=== PATIENT | male | born 1945 | race African-American/Black ===

== ENCOUNTER → 2017-01-31 | Outpatient (CLI) | payer OTHER ==
--- NOTE | 2017-01-31 15:08 | RAD ---
4 views lumbar spine without comparison for spondylolisthesis. Findings: Supine lateral view is somewhat oblique, however there is grade 1 anterolisthesis of L4 and L5, with severe degenerative facet arthrosis at L4-5 and L5-S1. There is narrowing at L4-5 as well. No other alignment abnormalities are identified. Extensive atherosclerotic calcifications are seen. There is vacuum phenomenon present at L5-S1. With both upright flexion and extension, the L4-5 anterolisthesis appears stable, however flexion dose reveal a less prominent grade 1 L3-4 anterolisthesis of 2 to 3 mm. There is a slight levocurvature of the spine. There is a 13 mm smooth ovoid calcific density over the left mid abdomen, which may represent renal calculus or element of the fecal stream. Impression: 1. Grade 1 L4-5 anterolisthesis stable in both flexion and extension. 2. Milder grade 1 anterolisthesis at L3-4, only apparent with flexion. 3. 13 mm possible left renal calculus. Correlate clinically. Finding could be confirmed with noncontrast CT scan or renal ultrasound if clinical warranted. 4. Other chronic changes as described.
== END | disposition home or self-care (01) ==
LOC: RAD 12:34
PROVIDERS: ATTEND Neurological Surgery
DX: M43.16 Spondylolisthesis, lumbar region (principal)
CPT/HCPCS: 72110

== ENCOUNTER → 2020-06-19 | Outpatient (CLI) | payer MEDICARE ==
[~2020-06-19] MED LIST: APIX5TAB PO; ATOR20TA58 PO; CARV25TA PO; CYCL5TAB PO; DOCU100C28 PO; FLUT9.9S NS; FURO40TA4 PO; GABA600T7 PO; HYDR-2763 PO; HYDR-2765 PO; IPRA15SP NS; LOSA100T14 PO; LOSA1TAB22 PO; MELO15TA23 PO; METO25TA4 PO; OXYC1TAB15 PO; PANT40TA77 PO; POTA20TA4 PO; TAMS0.4C97 PO; TRIA15OI TP; UMEC62.5 IH; VENTOLIN HFA18 GM INH; VITAMIN D3; ZOLP10TA PO
--- NOTE | 2020-06-19 13:56 | KCIC ---
EXAMINATION: Magnetic resonance imaging (MRI) of the lumbar spine without contrast 06/19/2020 12:35 PM HISTORY: Low back pain. TECHNIQUE: Multiplanar multi-weighted MRI of the lumbar spine was performed without intravenous contr ast using the standard lumbar spine protocol. Contrast information: None administered. COMPARISON: None available. FINDINGS: There is 2 mm anterolisthesis of L3 on L4 and 6 mm anterolisthesis of L4 on L5. There is mild disc he ight loss at L2-L3, L3-L4 and moderate disc height loss at L4-L5 and L5-S1 with vacuum disc phenomena at L5-S1. Disc desiccation is identified at all levels of lumbar spine. Conus medullaris terminates at L1. Distal spinal cord signal intensity is normal in all sequences. Vertebral body heights are kevin ntained. No acute fractures identified. No significant marrow edema is identified. Abdominal aorta is normal in caliber. No suspicious retroperitoneal abnormality is identified. 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 Bilateral renal cor tical cysts are identified measuring up to 2.4 cm the right kidney. L1-L2: Disc is normal in configuration. No significant facet arthropathy. No neuroforaminal or spinal canal stenosis. L2-L3: There is mild circumferential disc bulge with left central disc protrusion. Mild facet arthrop athy with fluid in the facet joints. There is mild to moderate bilateral neuroforaminal stenosis, lef t greater than right. Mild left lateral recess stenosis. Mild spinal canal stenosis. L3-L4: There is a large circumferential disc bulge. There is a right foraminal and far lateral disc e xtrusion. Severe facet arthropathy ligamentum flavum infolding. Severe right and moderate left neurof oraminal stenosis. Severe spinal canal stenosis. L4-L5: There is uncovering of the disc secondary to anterolisthesis. Moderate circumferential disc bu lge. There is severe facet arthropathy. Severe right and moderate left neuroforaminal stenosis. There is ligamentum flavum infolding with severe spinal canal stenosis and bilateral lateral recess stenos is. L5-S1: There is a circumferential disc bulge with central annular fissure. Mild facet arthropathy wit h fluid in the facet joints. Moderate left and moderate neural foraminal stenosis. No significant spi nal canal stenosis. IMPRESSION: Moderate degenerative changes of lumbar spine, as described in detail above. Electronically signed by: Luz Wilson MD (06/19/2020 1:54 PM) [id number]
== END ==
LOC: KCIC MRI 12:20
PROVIDERS: ATTEND Nurse Practitioner Family
DX: M47.816 Spondylosis without myelopathy or radiculopathy, lumbar region (principal); M43.16 Spondylolisthesis, lumbar region; M48.061 Spinal stenosis, lumbar region without neurogenic claudication; N28.1 Cyst of kidney, acquired
CPT/HCPCS: 72148

== ENCOUNTER → 2020-07-28 | Outpatient (CLI) | payer MEDICARE ==
[2020-07-28 13:12] LABS: BASO # 0.1 x10^3/uL (0.0-0.2); BASO % 1 % (0-3); EOS # 0.1 x10^3/uL (0.0-0.7); EOS % 1 % (0-3); HEMATOCRIT 44.5 % (39.0-53.0); HEMOGLOBIN 14.3 g/dL (13.0-17.5); LYMPH # 1.3 x10^3/uL (1.0-4.8); LYMPH % 13 % (24-48); MEAN CORPUSCULAR HEMOGLOBIN 27 pg (25-35); MEAN CORPUSCULAR HGB CONC 32 g/dL (31-37); MEAN CORPUSCULAR VOLUME 83 fL (79-100); MONO # 0.9 x10^3/uL (0.0-1.1); MONO % 9 % (0-9); NEUT # 7.8 x10^3/uL (1.8-7.7); NEUT % 76 % (31-73); PLATELET COUNT 202 x10^3/uL (140-400); RED BLOOD COUNT 5.34 x10^6/uL (4.30-5.70); RED CELL DISTRIBUTION WIDTH 14.3 % (11.5-14.5); WHITE BLOOD COUNT 10.2 x10^3/uL (4.0-11.0)
[2020-07-28 13:23] LABS: PROTHROMBIN TIME PATIENT 15.6 SEC (11.7-14.0)
[2020-07-28 13:36] LABS: ALBUMIN/GLOBULIN RATIO 1.3 (1.0-1.7); CALCIUM 9.1 mg/dL (8.5-10.1); CREATININE 1.7 mg/dL (0.7-1.3); POTASSIUM 4.7 mmol/L (3.5-5.1); TOTAL BILIRUBIN 1.2 mg/dL (0.2-1.0); TOTAL PROTEIN 7.2 g/dL (6.4-8.2)
== END ==
LOC: SURGPAT 12:28
PROVIDERS: ATTEND Neurological Surgery
DX: Z01.812 Encounter for preprocedural laboratory examination (principal); M48.062 Spinal stenosis, lumbar region with neurogenic claudication; M43.16 Spondylolisthesis, lumbar region; Z20.822 Contact with and (suspected) exposure to COVID-19
CPT/HCPCS: 80053; 85025; 85610; 85730; 87641; U0003

== ENCOUNTER 2020-10-08 10:57 | Day surgery (SDC) | payer MEDICARE ==
[~2020-10-08 10:57] MED LIST changes: -HYDR-2765 PO; +IV RINGERS,LACTATED 1000ML 1,000 ML IV SCH
[2020-10-08] MEDS ORDERED: HYDR-2765 PO (11:36)
[2020-10-08] MEDS ORDERED: PROPOFOL 10 MG/ML (20ML) VIAL. IV ONE (12:46)
[2020-10-08 13:14] VITALS: BP 135/91
--- NOTE | 2020-10-12 14:07 | PATHOLOGY ---
[facility] Accession Number: [id number] . 01 Material submitted: . esophagus - DISTAL ESOPHAGUS BIOPSY. Modifiers: distal . 01 Clinical history: . HEARTBURN,HOARSENESS EGD . 02 Diagnosis: Esophageal biopsies, distal esophagus: - Segments of mildly hyperplastic squamous esophageal mucosa. . ([facility]:mm; 10/09/2020) [facility] 10/09/2020 1730 Local . 02 Comment: Sections of the distal esophageal biopsy reveal segments of mildly hyperplastic squamous esophageal mucosa. The findings are consistent with reflux esophagitis. There is no evidence of Godinez's change, dysplasia, or malignancy. . ([facility]:mm; 10/09/2020) . 02 Electronically signed: . Salas Allan MD, Pathologist NPI- [id number] . 01 Gross description: . Received in formalin labeled "Mock, Herber and distal esophagus biopsy". Received are 3 reno-benitez soft tissue fragments ranging from 0.2-0.3 cm. Specimen is entirely submitted in cassette A1.([facility]; 10/08/2020) [facility] 10/08/2020 1844 Local . 02 Pathologist provided ICD-10: R12 . 02 CPT . 478115 Specimen Comment: A courtesy copy of this report has been sent to [phone] Specimen Comment: [phone], Specimen Comment: Report sent to ,DR GRIGGS / DR REYNOLDS Performed at: 01 [facility] [address], [place], [place] [id number] MD Olegario Jenkins MD Phone: [phone] Performed at: 02 [facility] [address] [place], [place] [id number] MD Salas Allan MD Phone: [phone]
== END 2020-10-08 13:26 | disposition home or self-care (01) ==
LOC: ENDOS 10:57
PROVIDERS: ATTEND Internal Medicine Gastroenterology
DX: R12 Heartburn (principal); K21.00 Gastro-esophageal reflux disease with esophagitis, without bleeding; K31.89 Other diseases of stomach and duodenum; I10 Essential (primary) hypertension; E78.00 Pure hypercholesterolemia, unspecified; I48.91 Unspecified atrial fibrillation; J44.9 Chronic obstructive pulmonary disease, unspecified; N40.0 Benign prostatic hyperplasia without lower urinary tract symptoms; M19.90 Unspecified osteoarthritis, unspecified site; Z87.891 Personal history of nicotine dependence; Z79.899 Other long term (current) drug therapy; Z98.890 Other specified postprocedural states; Z91.040 Latex allergy status; Z20.822 Contact with and (suspected) exposure to COVID-19
CPT/HCPCS: 43239; 87426; J2704

== ENCOUNTER → 2020-10-27 | Outpatient (CLI) | payer MEDICARE ==
[2020-10-08 13:14] VITALS: BP 135/91
[~2020-10-27] MED LIST changes: +HYDR-2765 PO; -IV RINGERS,LACTATED 1000ML 1,000 ML IV SCH
--- NOTE | 2020-10-27 12:50 | RAD ---
EXAM: Lumbar spine, 3 views. HISTORY: Fusion. COMPARISON: None. FINDINGS: 3 views lumbar spine are obtained. There is instrumented posterior spinal fusion at L4-L5. There is no evidence of instrumentation loosening. There is grade 1 anterolisthesis at this level, me asuring 11 mm. There is grade 1 anterolisthesis of L3 on L4, measuring 5 mm. There is grade 1 anterol isthesis of L2 on L3, measuring 2 mm. There is 2 mm retrolisthesis of L5 on S1. There is multilevel e ndplate remodeling. There is disc space narrowing with vacuum phenomenon and facet arthropathy predom inantly at L5-S1. There is levoscoliosis centered at L3. IMPRESSION: 1. Instrumented fusion at L4-L5. 2. Multilevel degenerative change, primarily the lumbosacral junction. 3. Mild multilevel listhesis and mild lumbar scoliosis, described above. Electronically signed by: Fozia Garcia MD (10/27/2020 12:48 PM) [id number]
== END ==
LOC: RAD 12:15
PROVIDERS: ATTEND Neurological Surgery
DX: M43.26 Fusion of spine, lumbar region (principal); M41.86 Other forms of scoliosis, lumbar region; M47.817 Spondylosis without myelopathy or radiculopathy, lumbosacral region
CPT/HCPCS: 72100

== ENCOUNTER → 2021-06-30 | Outpatient (CLI) | payer MEDICARE ==
[~2021-06-30] MED LIST changes: +POTA-121 PO; -POTA20TA4 PO
--- NOTE | 2021-06-30 14:26 | KCIC ---
EXAMINATION: MRI cervical spine without IV contrast INDICATION: Cervical canal stenosis, unsteady gait. Bilateral upper extremity weakness. COMPARISON: None TECHNIQUE: Multiplanar, multi-sequence MRI of the cervical spine was performed. FINDINGS: POSTERIOR FOSSA: Included posterior fossa is unremarkable. CERVICAL SPINAL CORD: The cervical cord is normal in morphology and signal intensity. ALIGNMENT: The alignment at the craniocervical junction is normal. The lateral masses of C1 are appro priately aligned with C2. There is no listhesis or scoliosis of the subaxial cervical spine. VERTEBRAE: No acute fracture. No subluxation. Heterogeneous bone marrow signal intensity, likely seco ndary to degeneration. Severe multilevel degenerative changes with disc space narrowing, endplate erosions and osteophytes. Specific level as follow: C2-C3: Diffuse disc bulge with ligamentum flavum hypertrophy and bilateral facet arthropathy, causing [id number] canal stenosis with mild to moderate bilateral neuroforaminal narrowing. C3-C4: Posterior disc osteophyte complex indenting and flattening anterior spinal cord. Bilateral fac et and uncovertebral arthropathy. Moderate canal stenosis with left worst than right severe neurofora alise narrowing. C4-C5: Posterior disc osteophyte complex indenting and flattening anterior spinal cord. Bilateral fac et and uncovertebral arthropathy with ligamentum flavum hypertrophy. Severe canal stenosis. Right wo rst than left, severe neuroforaminal narrowing. C5-6: Posterior disc osteophyte complex indenting and flattening anterior spinal cord. Bilateral face t and uncovertebral arthropathy. Moderate to severe canal stenosis. Severe bilateral neuroforaminal n arrowing. C6-7: Posterior disc osteophyte complex indenting flattening spinal cord. Bilateral facet and uncover tebral arthropathy with ligamentum flavum hypertrophy. Severe canal stenosis. Moderate to severe bila teral neuroforaminal narrowing. C7-T1: Diffuse disc bulge with bilateral facet arthropathy. No significant canal stenosis. Mild right neuroforaminal narrowing. T1-T2 and T2-3: Diffuse disc bulge with bilateral facet arthropathy. No significant canal stenosis or neuroforaminal narrowing. IMPRESSION: Advanced multilevel degenerative changes of the cervical spine with varying degrees of canal and neur oforaminal narrowing. Findings are most severe at C4-5 through C6-7 where there is moderate to severe canal stenosis and flattening of the spinal cord. Electronically signed by: Dipti Jordan MD (06/30/2021 2:23 PM) [id number]
--- NOTE | 2021-07-01 10:16 | KCIC ---
EXAM: Lumbar spine CT without contrast. HISTORY: Pain. TECHNIQUE: Computed tomographic images of the lumbar spine were obtained without contrast. Multiplana r reformatting was performed. *One or more of the following individualized dose reduction techniques were utilized for this examina tion: 1. Automated exposure control. 2. Adjustment of the mA and/or kV according to patient size. 3. Use of iterative reconstruction technique. COMPARISON: MRI dated 06/19/2020. CT dated 08/03/2020. FINDINGS: There is mild lumbar levoscoliosis centered at L3-L4. There is 2 mm grade 1 anterolisthesis of L2 on L3, 4 mm grade 1 anterolisthesis of L3 on L4, 7 mm grade 1 anterolisthesis of L4 on L5, and 2 mm retrolisthesis of L5 on S1. There is instrumented posterior spinal fusion at L4-L5. The instrum entation consists of paired transpedicular screws bridged by vertical rods. There is lucency surround ing the posterior aspect of the right L5 screw. There is multilevel endplate remodeling, primarily at L5-S1 and the right aspect of L3-L4. There is v acuum phenomenon within these disc spaces. There are endplate Schmorl's nodes at L5-S1. There are mul tiple simple renal cysts. Follow-up is not routinely performed for simple cysts. There is calcified a therosclerotic plaque involving the aorta and iliac bifurcation. There is degenerative subchondral sc lerosis and vacuum phenomenon involving the sacroiliac joints. At L1-L2, there is no stenosis. At L2-L3, there is a disc bulge and endplate remodeling. There is moderate to severe right and modera te left facet arthropathy. There is hypertrophy of the ligament of flavum. There is minimal grade 1 a nterolisthesis. There is mild right greater than left foraminal stenosis. There is mild to moderate c entral canal stenosis. At L3-L4, there is a right foraminal to extra foraminal disc protrusion with slight superior extrusio n superimposed on a right lateral predominant disc bulge and endplate osteophytosis. There is severe bilateral facet arthropathy. There is hypertrophy of the ligamentum flavum. There is mild grade 1 ant erolisthesis. There is severe right and mild left foraminal stenosis. There is moderate to severe dell tral canal stenosis. At L4-L5, there is a disc bulge and endplate osteophytosis. There is severe bilateral facet arthropat hy. There is instrumented fusion. There is mild grade 1 anterolisthesis. There is moderate right grea ter than left foraminal stenosis. There are partial laminotomy changes with suspected moderate persis tent narrowing of the thecal sac. At L5-S1, there is a left lateral predominant disc bulge and endplate osteophytosis. There is moderat e right and mild left facet arthropathy. There is mild retrolisthesis. There is mild right and modera te left foraminal stenosis. IMPRESSION: 1. Instrumented posterior spinal fusion and partial laminectomy changes at L4-L5. There is lucency gomez rrounding the posterior aspect of the right L5 screw. The postoperative changes are new compared to t he prior exam. 2. Multilevel degenerative change involving the lumbar spine, described in detail above. This results in stenosis of aforementioned levels. The right foraminal stenosis is most significant at L3-L4. The left foraminal stenosis is most significant at L5-S1. This in a canal stenosis is most significant a t L3-L4. The changes are similar compared to the prior exam 3. Lumbar scoliosis and multilevel listhesis. Electronically signed by: Fozia Garcia MD (07/01/2021 10:14 AM) [id number]
== END ==
LOC: KCIC MRI 12:28
PROVIDERS: ATTEND Neurological Surgery
DX: M47.27 Other spondylosis with radiculopathy, lumbosacral region (principal); M48.07 Spinal stenosis, lumbosacral region; M25.78 Osteophyte, vertebrae; M41.86 Other forms of scoliosis, lumbar region; N28.1 Cyst of kidney, acquired; I70.0 Atherosclerosis of aorta
CPT/HCPCS: 72131; 72141

== ENCOUNTER → 2021-10-22 | Outpatient (CLI) | payer MEDICARE ==
--- NOTE | 2021-10-22 11:51 | PDOC1 ---
INITIAL PAIN CONSULT DATE OF SERVICE: DOS: DATE: 10/22/21 TIME: 11:45 CHIEF COMPLAINT: Chief Complaint: Low back pain HISTORY OF PRESENT ILLNESS: 75-year-old male presents with history of pain low back for about 15 years status post lumbar laminectomy with fusion and instrumentation 1999 patient reports he did well after the surgery but the pain is always been present in the low back not rating to the lower extremities at this time is not low back worse on the right than the left but present bilaterally. Patient reports worse with walking standing changing positions sitting for prolonged periods greater than 20minutes riding in a car sitting on a soft active chair patient reports is better with sitting upright and standing then with sitting with a soft chair or slouching patient reports it wakes him from sleep at least once or twice a night does not affect his bowel bladder control but does affect his ability walk he is using a cane which has with him and he holds it in his left hand today. Patient reports pain the back is constant sharp throbbing and shooting across the low back cramping and aching as well patient reports his disability rating 0-10 10 being worst is a 5 with family home responsibilities and social activity for with recreation 8 with occupation and sexual behavior to his self-care and life support activities. Patient did have a MRI scan lumbar spine which we reviewed with him today showing instrumented posterior spinal fusion and partial laminectomy changes at L4-5 with significant postoperative findings mild to moderate left foraminal stenosis at L4-5 as well as L5-S1 with the right foraminal to extraforaminal disc protrusion L3-4 with slight superior extrusion superimposed on the right lateral predominant disc bulge and endplate osteophytosis. Patient reports no loss of motor function but significant fatigability of both lower extremities right greater than left also significant pain in his left knee and is planning left knee replacement in the near future. Patient has had physical therapy as well as doing exercise daily and previous epidural injections prior to his surgery all of which helped but only temporarily patient taking hydrocodone as well as gabapentin each which only helped a small amount. Patient reports no bowel or bladder incontinence. PAST MEDICAL HISTORY: PMH: Arthritis, COPD, cigarette smoking, irregular heart rhythm PREVIOUS SURGERIES: Past Surgical Hx: Lumbar fusion with instrumentation 2020, cataract extractions, hernia repair, bunionectomy left foot. CURRENT MEDICATIONS: Current Meds: Active Scripts Medications Dose Route/Sig Max Daily Dose Days Date Category Dose Instructions Hydrocodone-Apap 7.5-325 (Hydrocodone Bit/Acetaminophen) 1 Tab Tablet 1 Tab PO PRN Q6HRS PRN 10/08/20 Reported Ambien (Zolpidem Tartrate) 10 Mg Tablet 10 Mg PO PRN QHS PRN 08/03/20 Reported [Vitamin D3] 400 Units DAILY 08/03/20 Reported Ventolin Hfa Inhaler (Albuterol Sulfate) 18 Gm Hfa.aer.ad 2 Puff INH Q4HRS 08/03/20 Reported Triamcinolone Acetonide 0.1% Oint (Triamcinolone Acetonide) 15 Gm Oint...g. 1 Malia TP BID 08/03/20 Reported MIX WITH EUCERIN DIRECTED BY PHYSICIAN Flomax (Tamsulosin Hcl) 0.4 Mg Cap.er.24h 0.4 Mg PO BID 08/03/20 Reported Klor-Con M20 (Potassium Chloride) 20 Meq Tab.er.prt 20 Meq PO BID 08/03/20 Reported Pantoprazole Sodium (Pantoprazole Sodium) 40 Mg Tablet.dr 40 Mg PO DAILYAC 08/03/20 Reported Ipratropium Buckner 15 Ml [place] 15 Ml NS TID 08/03/20 Reported Incruse Ellipta (Umeclidinium Buckner) 62.5 Mcg Blst.w.dev 62.5 Mcg IH DAILY 08/03/20 Reported Gabapentin 600 Mg Tablet 600 Mg PO TID 08/03/20 Reported Furosemide 40 Mg Tablet 1 Tab PO DAILY PRN 08/03/20 Reported Flonase Allergy Relief (Fluticasone Propionate) 9.9 Ml [place].susp 2 Sprays NS DAILY 08/03/20 Reported Docusate Sodium 100 Mg Capsule 100 Mg PO BID 08/03/20 Reported Cyclobenzaprine Hcl 5 Mg Tablet 1 Tab PO QHS 08/03/20 Reported Atorvastatin Calcium 20 Mg Tablet 1 Tab PO DAILY 08/03/20 Reported Eliquis (Apixaban) 5 Mg Tablet 5 Mg PO DAILY 08/03/20 Reported ALLERGIES; Allergies: Coded Allergies: latex (Verified Allergy, Intermediate, 10/08/20) FAMILY HISTORY: Family Hx: No major medical problems or conditions that he is aware of. 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 REVIEW OF SYSTEMS: ROS: Positive for those items mentioned in history of present illness, all systems are reviewed, otherwise negative ,and are complete full and well-documented on patient's chart. PHYSICAL EXAM: VS: Blood pressure is 108/64 pulse 71 respirations 18 temperature 98.6 F height is 6 foot 1 inch weight is 210 pounds. PE: PHYSICAL EXAMINATION: GENERAL: The patient is awake, alert, oriented, appropriate, very pleasant in demeanor HEENT: Shows normocephalic, atraumatic. Extraocular movements are intact and symmetrical. Oral cavity: Mucous membranes moist and pink. NECK: Shows anterior throat supple without palpable lymphadenopathy noted. Swallow reflex symmetrical. CHEST: Shows normal on inspection. Breath sounds are clear bilaterally, distant and coarse but no rales rhonchi or wheezes auscultated. HEART: Shows S1, S2 clear. No murmurs auscultated. ABDOMEN: Soft, nontender, nondistended. No palpable organomegaly is noted. BACK: Shows spine grossly in the midline. Normal-appearing cervical lordotic curvature. There is mildly increased thoracic kyphosis, some flattening of the lumbar lordotic curvature with well-healed surgical scarring noted. Lumbar paraspinous muscles show symmetrical on inspection, on palpation shows some moderate tenderness diffusely throughout the upper, middle and lower distribution of the paraspinous muscles bilaterally and also into the lower thoracic paraspinous musculature, firm and tender, but without specific trigger points, without radiation of pain. The patient has good rotational motion of the lumbar spine, both laterally as well as extension and flexion with significant tenderness with extension and axial loading of the lumbar spine with pain bilateral right and left slightly worse on the right the left is better wi th forward flexion 45 degrees right left lateral rotation shows significant tenderness as well in the back itself but without radiation on the right side greater than the left as well. No tenderness over the spinous processes, sacrum or sacroiliac regions. EXTREMITIES: Lower extremities show deep tendon reflexes 1+ in the patellar and tendo calcaneus tendons. Motor exam is 4 on a scale of 5 with right dorsiflexion, extension, quadriceps and hamstring flexion and 4/5 on the left. Peripheral pulses are [] posterior tibial. No peripheral edema is noted bilaterally. Lower extremities are warm and dry to touch, equal in color and ap pearance. SKIN: Shows warm and dry, good turgor. No edema. No sores, rashes or bruising throughout. IMPRESSION: Impression: 75-year-old male with long history of low back pain status post lumbar fusion with instrumentation 2020 with persistent pain in the low back consistent with facet syndrome MRI scan lumbar spine as noted Arthritis COPD Irregular heart rhythm with anticoagulation therapy Plan: Options were discussed the patient including [facility] medical and is continued physical therapies and interventional techniques. Patient like to pursue medical techniques as he is doing physical therapy currently doing exercises on his own and taking oral analgesics including narcotics without significant reduction in pain. We discussed lumbar facet medial branch diagnostic blocks using description as well as anatomical models to describe the procedure. 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 In the meantime, patient will continue with stretching strength exercise on his own oral analgesics as currently. REX SALAZAR MD October 22, 2021 11:51
--- NOTE | 2021-10-22 12:23 | PDOC1 ---
INITIAL PAIN CONSULT DATE OF SERVICE: DOS: DATE: 10/22/21 TIME: 12:15 CHIEF COMPLAINT: Chief Complaint: Neck and left upper extremity pain HISTORY OF PRESENT ILLNESS: 60-year-old male presents with history of pain in the base the neck and left upper extremity for about 6 months after digging a trench some of his property patient reports generally when he has pain like this he would let it rest and take some oral analgesics and the pain would go away at this time pain did not go away he tried oral steroids as well without significant reduction in pain and has had pain rating the posterior aspect of the deltoid into the arm in the triceps and biceps regions as well as into the forearm into the hand with numbness and tingling in the thumb and first finger patient reports is constant radiating shooting worse with repetitive motion and worse with resting patient reports it wakes him to sleep occasionally but most nights he sleeps fairly well to get positioned with stresses off of his neck and his left arm. Patient reports he has had some increased fatigue with left arm with reaching over his head reaching forward weightbearing repetitive motions as well as reaching to the side away from his body on the left. Patient is done physical therapy also chiropractic treatment and exercises currently doing both of these and only has very temporary relief. Patient continues doing the stretching and strength exercises from his chiropractor and physical therapy at home daily. Patient is taking ibuprofen as well as Tylenol both of which decrease slightly the pain he tried gabapentin which was not significantly helpful as well. Patient did have a MRI scan of the cervical spine showing focal disc protrusion at the left C6-7 with left-sided nerve root abutment and possible compression with mild broad-bas ed disc bulge at C5-C6 with mild bilateral neuroforaminal narrowing as well. PAST MEDICAL HISTORY: PMH: Hearing loss, hypertension, arthritis PREVIOUS SURGERIES: Past Surgical Hx: Cataract extraction, tonsillectomy CURRENT MEDICATIONS: Current Meds: Active Scripts Medications Dose Route/Sig Max Daily Dose Days Date Category Dose Instructions Hydrocodone-Apap 7.5-325 (Hydrocodone Bit/Acetaminophen) 1 Tab Tablet 1 Tab PO PRN Q6HRS PRN 10/08/20 Reported Ambien (Zolpidem Tartrate) 10 Mg Tablet 10 Mg PO PRN QHS PRN 08/03/20 Reported [Vitamin D3] 400 Units DAILY 08/03/20 Reported Ventolin Hfa Inhaler (Albuterol Sulfate) 18 Gm Hfa.aer.ad 2 Puff INH Q4HRS 08/03/20 Reported Triamcinolone Acetonide 0.1% Oint (Triamcinolone Acetonide) 15 Gm Oint...g. 1 [place]ia TP BID 08/03/20 Reported MIX WITH EUCERIN DIRECTED BY PHYSICIAN Flomax (Tamsulosin Hcl) 0.4 Mg Cap.er.24h 0.4 Mg PO BID 08/03/20 Reported Klor-Con M20 (Potassium Chloride) 20 Meq Tab.er.prt 20 Meq PO BID 08/03/20 Reported Pantoprazole Sodium (Pantoprazole Sodium) 40 Mg Tablet.dr 40 Mg PO DAILYAC 08/03/20 Reported Ipratropium [place] 15 Ml [place] 15 Ml NS TID 08/03/20 Reported Incruse Ellipta (Umeclidinium [place]) 62.5 Mcg Blst.w.dev 62.5 Mcg IH DAILY 08/03/20 Reported Gabapentin 600 Mg Tablet 600 Mg PO TID 08/03/20 Reported Furosemide 40 Mg Tablet 1 Tab PO DAILY PRN 08/03/20 Reported Flonase Allergy Relief (Fluticasone Propionate) 9.9 Ml [place].susp 2 Sprays NS DAILY 08/03/20 Reported Docusate Sodium 100 Mg Capsule 100 Mg PO BID 08/03/20 Reported Cyclobenzaprine Hcl 5 Mg Tablet 1 Tab PO QHS 08/03/20 Reported Atorvastatin Calcium 20 Mg Tablet 1 Tab PO DAILY 08/03/20 Reported Eliquis (Apixaban) 5 Mg Tablet 5 Mg PO DAILY 08/03/20 Reported ALLERGIES; Allergies: Coded Allergies: latex (Verified Allergy, Intermediate, 10/08/20) FAMILY HISTORY: Family Hx: No major medical problems or conditions that he is aware of. SOCIAL HISTORY: Social Hx: Patient is under alcohol does not smoke or use any illegal licit recreational drug is lives with his spouse lives locally in [place], [place] REVIEW OF SYSTEMS: ROS: Positive for those items mentioned in history of present illness, all systems are reviewed, otherwise negative ,and are complete full and well-documented on patient's chart. PHYSICAL EXAM: VS: Blood pressure is 170/87 pulse 64 respiration 16 temperature 90.6 3 Fahrenheit height 6 foot weight is 158 pounds. PE: PHYSICAL EXAMINATION: GENERAL: The patient is awake, alert, oriented, appropriate, very pleasant in demeanor HEENT: Shows normocephalic, atraumatic. Extraocular movements are intact and symmetrical. Oral cavity: Mucous membranes moist and pink. Dentition is intact. NECK: Shows anterior throat supple without palpable lymphadenopathy noted. Swallow reflex symmetrical. CHEST: Shows normal on inspection. Breath sounds are clear bilaterally, no rales rhonchi wheezes auscultated. HEART: Shows S1, S2 clear. No murmurs auscultated. ABDOMEN: Soft, nontender, nondistended. No palpable organomegaly is noted. BACK: Shows spine grossly in the midline. Normal-appearing cervical lordotic curvature. Cervical paraspinous muscles show symmetrical inspection, palpation some moderate tenderness diffusely in the middle and lower decrease the paraspinous muscles more on the left than the right but present bilaterally without trigger points without atrophy hypertrophy and without asymmetry. Patient shows full rotation motion cervical spine with moderate tenderness with far left lateral rotation past 45 degrees as well as extension but not with forward flexion or right lateral rotation. There is slightly increased thoracic kyphosis, some minor flattening of the lumbar lordotic curvature. . EXTREMITIES: Upper extremities show deep tendon reflexes 2 in the biceps and tricep tendons. Motor exam is 5 on a scale of 5 with right [employer], biceps and triceps flexion and 4/5 on the left. Peripheral pulses are 2+ radial. No peripheral edema is noted bilaterally. Upper extremities are warm and dry to touch, equal in color and appearance. Shoulder shrug strong intact without loss of strength on resistance bilaterally as is abduction of the shoulders 90 degrees bilaterally. SKIN: Shows warm and dry, good turgor. No edema. No sores, rashes or bruising throughout. IMPRESSION: Impression: 60-year-old male with approximate 6-month history of pain neck and left upper extremity radicular fashion following a C6-7 dermatomal distribution. 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 Patient would like to proceed with medical techniques. We discussed a cervical epidural steroid injection using description as well as anatomical models described procedure. Patient will wait for preauthorization with his insurance provider but once approved will return for translaminar approach C6-7 level cervical epidural steroid injection with fluoroscopic guidance. In the meantime, patient to continue with chiropractic as well as stretching strength exercises and oral analgesics as currently. REX SALAZAR MD October 22, 2021 12:23
--- NOTE | 2021-10-22 14:14 | FMN ---
PT PROBLEMS H&P timed at 12:23 is on different patient REX SALAZAR MD October 22, 2021 14:14
== END | disposition home or self-care (01) ==
LOC: PNCL 10:21
PROVIDERS: ATTEND Anesthesiology
DX: M54.50 Low back pain, unspecified (principal); M19.90 Unspecified osteoarthritis, unspecified site; J44.9 Chronic obstructive pulmonary disease, unspecified; I48.91 Unspecified atrial fibrillation; E78.00 Pure hypercholesterolemia, unspecified; K21.9 Gastro-esophageal reflux disease without esophagitis; N40.0 Benign prostatic hyperplasia without lower urinary tract symptoms; Z79.899 Other long term (current) drug therapy; Z98.890 Other specified postprocedural states
CPT/HCPCS: 99214; G0463